=== PATIENT | male | born 1965 | race Caucasian/White ===

== ENCOUNTER 2024-02-27 19:17 | Emergency (ER) | payer OTHER ==
[~2024-02-27] VITALS: Ht 170.2 cm; Wt 75.0 kg
[~2024-02-27 19:17] MED LIST: CLAR10 MT; IBUP-2028 MT; ISOS30TA12 MT; P50 MT
[2024-02-27 19:21] VITALS: O2SAT 99
[2024-02-27 23:06] VITALS: BP 149/90; PULSE 80; RESP 18; TEMP 98.8; O2SAT 100
[2024-02-28] MEDS ORDERED: IBUP-2029 MT (00:24)
[2024-02-28] MEDS ORDERED: HYDR-4001 MT (00:24)
== END 2024-02-28 01:01 | disposition home or self-care (01) ==
LOC: ER 19:17
DX: S82.831A Other fracture of upper and lower end of right fibula, initial encounter for closed fracture (principal); E78.00 Pure hypercholesterolemia, unspecified; I10 Essential (primary) hypertension; X58.XXXA Exposure to other specified factors, initial encounter; Y93.89 Activity, other specified; Y92.89 Other specified places as the place of occurrence of the external cause; Y99.8 Other external cause status
CPT/HCPCS: 73610; 29515; 99283; Z7610

== ENCOUNTER 2025-01-29 15:54 | Emergency (ER) | payer OTHER ==
[~2025-01-29] VITALS: Ht 170.2 cm; Wt 77.0 kg
[~2025-01-29 15:54] MED LIST changes: +HYDR-4001 MT; +IBUP-1455 MT
[2025-01-29 16:05] VITALS: O2SAT 99
[2025-01-29] MEDS: KETOROLAC 15MG/ML VIAL IM ONE (19:53)
[2025-01-29] MEDS: LIDOCAINE 5% PATCH TOP SCH (19:54)
[2025-01-29] MEDS ORDERED: ACET-2708 MT (20:37)
[2025-01-29] MEDS ORDERED: LIDO-53 TP (20:37)
[2025-01-29 21:08] VITALS: BP 135/64; PULSE 64; RESP 16; TEMP 36.7; O2SAT 99
== END 2025-01-29 21:40 | disposition home or self-care (01) ==
LOC: ER 15:54
DX: S50.312A Abrasion of left elbow, initial encounter (principal); M54.50 Low back pain, unspecified; M79.641 Pain in right hand; M79.642 Pain in left hand; R07.89 Other chest pain; E78.00 Pure hypercholesterolemia, unspecified; I10 Essential (primary) hypertension; Z88.1 Allergy status to other antibiotic agents; W19.XXXA Unspecified fall, initial encounter; Y93.89 Activity, other specified; Y92.89 Other specified places as the place of occurrence of the external cause; Y99.8 Other external cause status
CPT/HCPCS: 99284; 71101; 73080; 73130; 29130; 96372; J1885